=== PATIENT | female | born 1995 | race Caucasian/White ===

== ENCOUNTER → 2022-10-29 13:02 | Outpatient (CLI) | payer BC, SELFPAY ==
--- NOTE | ~2022-10-29 | XR_ITS ---
Right Knee Technique: AP, lateral, and sunrise views were obtained. Clinical History: Juvenile arthritis Findings: No fracture or dislocation is seen. Osseous alignment is anatomic. Joint spaces are preserv ed without degenerative or erosive change. Possible small joint effusion is seen. Impression: No osseous or articular abnormality evident. Possible small joint effusion. Reviewed, dictated and finalized at location . Impression: No osseous or articular abnormality evident. Possible small joint effusion.
--- NOTE | ~2022-10-29 | XR_ITS ---
Right elbow Technique: AP and lateral views were obtained. Clinical History: Pain Findings: No acute fracture or dislocation is seen. Osseous alignment is anatomic. Joint spaces are p reserved. There is no displacement of the fat pads, and soft tissues are unremarkable. Impression: Unremarkable radiographs. Reviewed, dictated and finalized at location . Impression: Unremarkable radiographs.
== END ==
PROVIDERS: PCP Family Medicine; Visit Provider Family Medicine
DX: M08.90 Juvenile arthritis, unspecified, unspecified site (principal); M25.521 Pain in right elbow; M25.561 Pain in right knee
CPT/HCPCS: 73070; 73562

== ENCOUNTER 2024-04-06 15:20 | Outpatient (CLI) | payer BC, SELFPAY ==
--- NOTE | ~2024-04-06 | XR_ITS ---
EXAMINATION: XR chest 2V DATE: 04/06/2024 15:41 INDICATION: Shortness of breath and cough TECHNIQUE: PA and lateral views of the chest were obtained. COMPARISON: None FINDINGS: The lungs are clear with no focal airspace opacities, pulmonary edema, pleural effusion or pneumothor ax. The cardiomediastinal silhouette is normal. Visualized bones and soft tissues are unremarkable. IMPRESSION: 1. No acute cardiopulmonary disease. Reviewed, dictated and finalized at location A.
== END 2024-04-06 15:21 ==
PROVIDERS: PCP Family Medicine
DX: Z34.90 Encounter for supervision of normal pregnancy, unspecified, unspecified trimester (principal); R06.02 Shortness of breath; R05.9 Cough, unspecified; Z3A.00 Weeks of gestation of pregnancy not specified
CPT/HCPCS: 71046

== ENCOUNTER 2024-04-07 10:57 | Emergency (ER) | payer BC, SELFPAY ==
[2024-04-07 11:00] VITALS: BP 139/102; PULSE 83; RESP 24; TEMP 36.8; O2SAT 100
--- NOTE | 2024-04-07 11:03 | ECG_ITS ---
Test Date: 2024-04-07 11:16:43 Measurements Intervals [place] Rate: 85 P: 44 MT: 133 QRS: 46 QRSD: 94 T: -8 QT: 367 QTc: 439 Interpretive Statements SINUS RHYTHM POSSIBLE LEFT ATRIAL ENLARGEMENT [-0.1mV P WAVE IN V1/V2] No previous ECG available for comparison Electronically Signed On 04-08-2024 14:20:27 CDT by Jose Elias Garay M.D.
[2024-04-07 11:35] VITALS: O2SAT 97
[2024-04-07 11:38] LABS: Basophils Percent Auto 0.2 % (0.2-1.2); Eosinophils Absolute Auto 0.1 K/mm3 (0-0.3); Eosinophils Percent Auto 0.8 % (0-4.4); Hematocrit 36.7 % (37.0-47.0); Hemoglobin 12.2 g/dL (12.0-15.0); Immature Granulocyte Absolute 0.11 K/mm3 (0.00-0.031); Lymphocytes Absolute Auto 1.68 K/mm3 (0.9-3.2); Lymphocytes Percent Auto 15.6 % (18.3-44.2); Mean Corpuscular HGB Conc 33.2 g/dl (32-36); Mean Corpuscular Hemoglobin 28.8 pg (26-34); Mean Corpuscular Volume 86.8 fl (80-100); Mean Platelet Volume 11.9 fl (7.4-10.4); Monocytes Absolute Auto 0.7 K/mm3 (0.1-0.6); Monocytes Percent Auto 6.7 % (2.6-8.5); Neutrophils Absolute Auto 8.1 K/mm3 (1.3-6.7); Neutrophils Percent Auto 75.7 % (45.5-73.1); Platelet Count Result 200 k/mm3 (150-375); Red Blood Count 4.23 M/mm3 (4.2-5.4); Red Cell Distribution Width 14.1 % (11.5-14.5); White Blood Count 10.7 K/mm3 (4.5-10.0)
[2024-04-07 11:52] LABS: Alanine Aminotransferase 11 U/L (6-35); Albumin Level 3.6 g/dL (3.5-5.1); Alkaline Phosphatase 92 U/L (38-126); Anion Gap 9 mmol/L (4-12); Aspartate Amino Transferase 21 U/L (14-36); Bilirubin,Total 0.2 mg/dL (0.2-1.3); Blood Urea Nitrogen 4 mg/dL (7-17); Calcium 8.9 mg/dL (8.4-10.2); Carbon Dioxide 21 mmol/L (22-30); Chloride 104 mmol/L (98-107); Estimated CRCL calculation 171 ml/min; Estimated Glomerular Filt Rate > 60; Glucose 73 mg/dL (65-110); Potassium 3.8 mmol/L (3.4-5.0); Sodium 134 mmol/L (137-145)
--- NOTE | 2024-04-07 12:13 | ED.SOB ---
HPI - SOB/Dyspnea General Chief Complaint: Shortness of Breath/Dyspnea Stated Complaint: SOB Time Seen by Provider: 04/07/24 11:05 Source: patient and family Mode of arrival: ambulatory Limitations: no limitations History of Present Illness HPI Narrative: Pt is a 28-year-old female presenting to the ER with complaints of shortness of breath that started on Friday, April 04. She reports she went to her PCP on Friday, who noticed some mild expiratory wheezing. Her PCP did a chest x-ray and it was unremarkable, so they advised her to come to the ER. Pt reports she is almost 28 weeks and has had high blood pressure readings at her last two OBGYN appointments. Her OBGYN put her on one baby Aspirin/day. Pt reports she has her glucose screening next week and her OBGYN plans to reevaluate her blood pressure at her next appointment. Pt and her mother report pt's legs, hands, and face have all become more swollen in the last week. They also report her shortness of breath gets worse with exertion and when she talks. 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 Family History Family History Grandparent Cancer Diabetes mellitus Hypertension Heart disease Father Hypertension Depression Mother Cerebrovascular accident Thyroid disorder Social History Social History Smoking status: Never smoker Alcohol intake: current Alcohol use details: rarely Substance use type: does not use Living arrangements: with roommate(s) Occupation/Education: occupation Additional occupation/education comments: [employer] Vital Signs Vital signs: Vital Signs Temperature 36.8 C 04/07/24 11:00 Pulse Rate 83 04/07/24 11:00 Respiratory Rate 24 H 04/07/24 11:00 Blood Pressure 139/102 H 04/07/24 11:00 Pulse Oximetry 100 04/07/24 11:00 Oxygen Delivery Room Air 04/07/24 11:00 Temperature 36.8 C 04/07/24 11:00 Pulse Rate 83 04/07/24 13:47 Respiratory Rate 19 04/07/24 13:47 Blood Pressure 127/87 04/07/24 13:47 Pulse Oximetry 100 04/07/24 13:47 Oxygen Delivery Room Air 04/07/24 11:35 MDM - SOB/Dyspnea MDM Narrative Medical decision making narrative: Pt is a 28-year-old female presenting to the ER with complaints of shortness of breath that started on Friday, April 04. She reports she went to her PCP on Friday, who noticed some mild expiratory wheezing. Her PCP did a chest x-ray and it was unremarkable, so they advised her to come to the ER. Pt reports she is almost 28 weeks and has had high blood pressure readings at her last two OBGYN appointments. Her OBGYN put her on one baby Aspirin/day. Pt reports she has her glucose screening next week and her OBGYN plans to reevaluate her blood pressure at her next appointment. Pt and her mother report pt's legs, hands, and face have all become more swollen in the last week. They also report her shortness of breath gets worse with exertion and when she talks. Upon exam, pt has bilateral, mildly swollen, non-pitting lower extremities. Lower extremity cap refill is >3 seconds. She has mild expiratory wheezes upon auscultation. A repeat chest x-ray will not be performed, as pt had one yesterday and it was within nor
[2024-04-07 12:15] VITALS: PULSE 75; RESP 18
[2024-04-07] MEDS: IPRATROPIUM BR 0.02% INH SOLN 0.5 MG/2.5 ML VIAL INHALATION (12:15)
[2024-04-07] MEDS: LEVALBUTEROL NEB 1.25 MG/3 ML INHALATION (12:15)
[2024-04-07 12:22] LABS: Add Urine Microscopic? NO; Appearance Urine Clear (Clear); Bilirubin Urine Negative (Negative); Blood Urine Negative (Negative); Color Urine Yellow (Yellow); Glucose Urine UA Negative (Negative); Ketones Urine Negative (Negative); Leukocyte Esterase Ur Negative LEU/UL (Negative); Nitrate Urine Negative (Negative); Protein Urine Negative (Negative); Specific Grav Ur 1.003 (1.001-1.035); Urobilinogen Urine 0.2 mg/dL (<2.0)
[2024-04-07 12:23] VITALS: PULSE 81; RESP 18
[2024-04-07 13:00] LABS: D Dimer 0.52 ug/mL (<0.48)
[2024-04-07 13:09] LABS: Influenza A QL RT-PCR Negative (Negative); Influenza B QL RT-PCR Negative (Negative); RSV RNA, RT-PCR Negative (Negative); SARS-CoV-2 RNA PCR Negative (Negative)
[2024-04-07 13:47] VITALS: BP 127/87; PULSE 83; RESP 19; O2SAT 100
[2024-04-07 14:42] VITALS: BP 140/88; PULSE 87; RESP 16; O2SAT 100
== END 2024-04-07 14:44 | disposition home or self-care (01) ==
PROVIDERS: Student in an Organized Health Care Education/Training Program; Emergency Provider Registered Nurse; PCP Family Medicine
DX: O26.892 Other specified pregnancy related conditions, second trimester (principal); B34.9 Viral infection, unspecified; Z20.822 Contact with and (suspected) exposure to COVID-19; Z3A.00 Weeks of gestation of pregnancy not specified
CPT/HCPCS: 36415; 80053; 81003; 85025; 85380; 87637; 93005; 94640; 99284

== ENCOUNTER 2024-04-19 10:27 | Outpatient (RCR) | payer BC, SELFPAY ==
[2024-04-19 11:13] VITALS: BP 144/87; PULSE 78
== END 2024-07-14 17:47 | disposition home or self-care (01) ==
LOC: ANHOBOP 10:27
PROVIDERS: PCP Family Medicine; Visit Provider Obstetrics & Gynecology
DX: O13.9 Gestational [pregnancy-induced] hypertension without significant proteinuria, unspecified trimester (principal)
CPT/HCPCS: 59025

== ENCOUNTER 2024-04-22 17:28 | Outpatient (CLI) | payer BC, SELFPAY ==
[2024-04-22 18:01] LABS: Basophils Percent Auto 0.2 % (0.2-1.2); Eosinophils Absolute Auto 0.1 K/mm3 (0-0.3); Eosinophils Percent Auto 0.6 % (0-4.4); Hematocrit 35.9 % (37.0-47.0); Hemoglobin 12.1 g/dL (12.0-15.0); Immature Granulocyte Absolute 0.04 K/mm3 (0.00-0.031); Immature Granulocyte Percent A 0.4 % (0-0.5); Lymphocytes Percent Auto 17.6 % (18.3-44.2); Mean Corpuscular HGB Conc 33.7 g/dl (32-36); Mean Corpuscular Hemoglobin 28.8 pg (26-34); Mean Corpuscular Volume 85.5 fl (80-100); Monocytes Absolute Auto 0.6 K/mm3 (0.1-0.6); Monocytes Percent Auto 6.2 % (2.6-8.5); Neutrophils Absolute Auto 7.2 K/mm3 (1.3-6.7); Platelet Count Result 188 k/mm3 (150-375); Red Cell Distribution Width 14.4 % (11.5-14.5); White Blood Count 9.7 K/mm3 (4.5-10.0)
[2024-04-22 18:11] LABS: Alanine Aminotransferase 18 U/L (6-35); Albumin Level 3.5 g/dL (3.5-5.1); Alkaline Phosphatase 119 U/L (38-126); Anion Gap 12 mmol/L (4-12); Aspartate Amino Transferase 25 U/L (14-36); Bilirubin,Total 0.3 mg/dL (0.2-1.3); Blood Urea Nitrogen 7 mg/dL (7-17); Calcium 9.4 mg/dL (8.4-10.2); Carbon Dioxide 19 mmol/L (22-30); Chloride 104 mmol/L (98-107); Estimated Glomerular Filt Rate > 60; Glucose 71 mg/dL (65-110); Potassium 3.4 mmol/L (3.4-5.0); Sodium 135 mmol/L (137-145); Uric Acid 4.5 mg/dL (2.5-7.5)
[2024-04-22 18:51] VITALS: BP 153/93; PULSE 69
[2024-04-22 18:52] VITALS: BP 151/90; PULSE 73
[2024-04-22 18:53] VITALS: BP 150/90; BP 153/93; PULSE 69
== END 2024-04-22 18:47 | disposition home or self-care (01) ==
PROVIDERS: PCP Family Medicine; Referring Provider Obstetrics & Gynecology; Visit Provider Obstetrics & Gynecology
DX: O13.9 Gestational [pregnancy-induced] hypertension without significant proteinuria, unspecified trimester (principal); Z3A.00 Weeks of gestation of pregnancy not specified
CPT/HCPCS: 36415; 59025; 80053; 84550; 85025

== ENCOUNTER 2024-04-26 16:17 | Outpatient (CLI) | payer BC, SELFPAY ==
[2024-04-26] VITALS (7 sets, daily range): BP systolic 147–155; BP diastolic 93–99; PULSE 68–80
[2024-04-26 16:54] LABS: Basophils Percent Auto 0.1 % (0.2-1.2); Eosinophils Absolute Auto 0.1 K/mm3 (0-0.3); Eosinophils Percent Auto 0.7 % (0-4.4); Hemoglobin 11.9 g/dL (12.0-15.0); Immature Granulocyte Absolute 0.03 K/mm3 (0.00-0.031); Immature Granulocyte Percent A 0.4 % (0-0.5); Mean Corpuscular HGB Conc 33.1 g/dl (32-36); Mean Corpuscular Hemoglobin 28.4 pg (26-34); Mean Corpuscular Volume 85.9 fl (80-100); Mean Platelet Volume 12.5 fl (7.4-10.4); Monocytes Absolute Auto 0.6 K/mm3 (0.1-0.6); Monocytes Percent Auto 7.2 % (2.6-8.5); Neutrophils Absolute Auto 6.2 K/mm3 (1.3-6.7); Neutrophils Percent Auto 74.6 % (45.5-73.1); Platelet Count Result 179 k/mm3 (150-375); Red Blood Count 4.19 M/mm3 (4.2-5.4); Red Cell Distribution Width 14.1 % (11.5-14.5); White Blood Count 8.3 K/mm3 (4.5-10.0)
[2024-04-26 17:04] LABS: Chloride 100 mmol/L (98-107)
[2024-04-26 17:08] LABS: Add Urine Microscopic? NO; Appearance Urine Clear (Clear); Bilirubin Urine Negative (Negative); Blood Urine Negative (Negative); Color Urine Yellow (Yellow); Glucose Urine UA Negative (Negative); Ketones Urine Negative (Negative); Leukocyte Esterase Ur Negative LEU/UL (Negative); Nitrate Urine Negative (Negative); Protein Urine Negative (Negative); Specific Grav Ur 1.004 (1.001-1.035); Urobilinogen Urine 0.2 mg/dL (<2.0)
[2024-04-26 17:12] LABS: Alanine Aminotransferase 15 U/L (6-35); Albumin Level 3.3 g/dL (3.5-5.1); Alkaline Phosphatase 110 U/L (38-126); Anion Gap 6 mmol/L (4-12); Aspartate Amino Transferase 25 U/L (14-36); Bilirubin,Total 0.3 mg/dL (0.2-1.3); Blood Urea Nitrogen 7 mg/dL (7-17); Calcium 9.2 mg/dL (8.4-10.2); Carbon Dioxide 21 mmol/L (22-30); Estimated Glomerular Filt Rate > 60; Glucose 78 mg/dL (65-110); Potassium 3.4 mmol/L (3.4-5.0); Sodium 127 mmol/L (137-145)
[2024-04-26 17:38] LABS: Creatinine Urine 22.7 mg/dL; Total Protein Urine Random 17 mg/dL; Ur Ttl Prot Creatinine Ratio 0.75 mg/mg (0-0.20)
--- NOTE | 2024-04-26 17:58 | PC.NURSE ---
Dr Schneider notified of Bp's and lab results. Ok to dc home and cont to monitor for Pre E symptoms.
== END 2024-04-26 18:25 | disposition home or self-care (01) ==
LOC: ANHOBOP 16:31 → ANHOBPP 17:04
PROVIDERS: Obstetrics & Gynecology; PCP Family Medicine; Visit Provider Obstetrics & Gynecology
DX: O13.9 Gestational [pregnancy-induced] hypertension without significant proteinuria, unspecified trimester (principal); Z3A.00 Weeks of gestation of pregnancy not specified
CPT/HCPCS: 36415; 59025; 80053; 81003; 82570; 84156; 84550; 85025; 99199

== ENCOUNTER 2024-06-28 09:26 | Outpatient (CLI) | payer BC, SELFPAY ==
[2024-06-28 10:18] LABS: Beta HCG Quantitative < 2.39 mIU/ML
== END 2024-06-28 09:27 | disposition home or self-care (01) ==
LOC: ANHLAB 09:28
PROVIDERS: PCP Family Medicine; Visit Provider Obstetrics & Gynecology
DX: N91.2 Amenorrhea, unspecified (principal)
CPT/HCPCS: 36415; 84702